=== PATIENT | female | born 1980 | race Caucasian/White ===

== ENCOUNTER → 2017-10-06 | Outpatient (CLI) | payer OTHER ==
--- NOTE | 2017-10-07 10:40 | RAD ---
EXAM DESCRIPTION: Knee,Left Complete CLINICAL HISTORY: 37 years, Female, PAIN IN LEFT KNEE COMPARISON: None TECHNIQUE: Four views of the left knee including standing views FINDINGS: No fracture or dislocation. Bones appear normally mineralized with normal trabecular pattern. Normal with of medial and lateral compartments on frontal view. Mild sclerosis of the medial femoral condyle and medial tibial plateau. Lateral view shows normal position of the patella. Mild posterior patellar spurring. No suprapatellar knee joint effusion. Normal contour of quadriceps and patellar tendons. No abnormal patellar tilt or subluxation on patellar sunrise view. IMPRESSION: Negative for fracture or dislocation. Electronically signed by: Jim Tilley MD 10/07/2017 10:38 AM CDT
--- NOTE | 2017-10-07 10:41 | RAD ---
EXAM DESCRIPTION: Knee,Right Complete CLINICAL HISTORY: 37 years, Female, PAIN IN RIGHT KNEE COMPARISON: None TECHNIQUE: Four views of the right knee including standing views FINDINGS: No fracture or dislocation. Bones appear normally mineralized with normal trabecular pattern. Mild narrowing of medial and compartment on frontal view with sclerosis and eburnation of the medial femoral condyle. There is mild medial joint line spurring with spurring of the tibial spines. Bone island in the proximal tibia in the lateral tibial plateau region. Lateral view shows normal position of the patella. Mild posterior patellar spurring is present. No suprapatellar knee joint effusion. Normal contour of quadriceps and patellar tendons. Mild lateral tilt without subluxation of the patella on patellar sunrise view. Mild posterior lateral patellar spurring with spurring of the anterior medial femoral trochlea. IMPRESSION: Degenerative changes as described. Electronically signed by: Jim Tilley MD 10/07/2017 10:40 AM CDT
--- NOTE | 2017-10-07 10:43 | RAD ---
EXAM DESCRIPTION: Pelvis CLINICAL HISTORY: 37 years Female, PAIN IN LEFT HIP COMPARISON: None. TECHNIQUE: Single x-ray view of the pelvis and hips. FINDINGS: Transitional lumbosacral sacral vertebrae seen with pseudoarticulation of the right transverse process with the upper right sacral ala. Mild degenerative spurring is seen lateral to the pseudoarticulation at the upper margin of the right SI joint. Bones of the pelvic ring appear intact. No hip fracture or dislocation. Mild spurring at the superolateral left femoral head neck junction. Intact proximal femurs. IMPRESSION: Negative for fracture or dislocation. Electronically signed by: Jim Tilley MD 10/07/2017 10:42 AM CDT
== END ==
LOC: RAD 00:47
PROVIDERS: ATTEND Orthopaedic Surgery
DX: M25.562 Pain in left knee (principal); M25.561 Pain in right knee; M25.552 Pain in left hip; M25.551 Pain in right hip; Z01.818 Encounter for other preprocedural examination

== ENCOUNTER → 2018-02-16 | Outpatient (CLI) | payer OTHER | LOC: RESP 08:41 | PROVIDERS: ATTEND Orthopaedic Surgery | DX: Z01.818 Encounter for other preprocedural examination (principal); M25.562 Pain in left knee; M25.561 Pain in right knee; M25.552 Pain in left hip; M25.551 Pain in right hip ==

== ENCOUNTER 2018-04-12 05:43 | Day surgery (SDC) | payer OTHER ==
--- NOTE | 2018-04-06 13:52 | HP ---
CHIEF COMPLAINT: Left knee pain. HISTORY OF PRESENT ILLNESS: Deena is a 38-year-old female with a history of pain in the left knee. She has been scheduled to undergo knee arthroscopy, however, has had difficulty getting medical clearance. She now has medical clearance. Her complaints include locking and popping in addition to her pain. She said she has failed conservative measures. She is now requesting operative intervention. After discussing the risks, benefits and alternatives to that, the patient has given informed consent. PAST SURGICAL HISTORY: She says she has had multiple surgeries, but is unable to remember all of them. MEDICATIONS: Hormone replacement. ALLERGIES: She has multiple allergies and says she can only take a Z-Brendon and morphine, otherwise she feels as though she is allergic. CODE STATUS: Full code. IMMUNIZATIONS: Up to date. FAMILY HISTORY: None pertinent to today's complaint. SOCIAL HISTORY: The patient does not drink or use any illicit drugs. She does smoke. REVIEW OF SYSTEMS: Negative except as indicated in the History of Present Illness. PHYSICAL EXAMINATION: VITAL SIGNS: Blood pressure 122/75. Pulse 84. Height 5'5". Weight 207. MENTAL STATUS: The patient is awake, alert, and is able to give a good history and participate in the physical. The patient is oriented to person, place and time. SKIN: Normal tone and turgor. HEENT: Normocephalic, atraumatic. Pupils equal, round and reactive. Mucosal membranes are moist. NECK: Normal range of motion. No thyromegaly, no lymphadenopathy. CHEST: Normal respiratory excursion. CARDIAC: Regular rate and rhythm. No murmurs, rubs or gallops. MUSCULOSKELETAL: She has tenderness over the medial aspect of the knee and mild effusion today. Sensation is intact throughout the extremity. She does maintain full extension with flexion to about 125 degrees. She has no varus/ valgus or anterior/posterior laxity and she has no malalignment. She has positive Roberto's and probable clicking in the knee. ASSESSMENT: 1. Meniscus tear. PLAN: The plan at this point is for knee arthroscopy. We have discussed the risks, benefits, and alternatives to that and the patient has given informed consent. #[id number] [facility]
[2018-04-12] MEDS ORDERED: DEXAMETHASONE INJ 10 MG/ML VIAL ONE (07:00)
[2018-04-12] MEDS ORDERED: raNITIdine HCL INJ 25 MG/ML VIAL ONE (07:00)
[2018-04-12] MEDS ORDERED: LIDOCAINE 1% 10 ML VIAL INJ ONE (07:00)
[2018-04-12] MEDS ORDERED: PROPOFOL 200 MG/20 ML VIAL IV ONE (07:00)
[2018-04-12] MEDS ORDERED: BUPIVACAINE 0.5% 30 ML VIAL INJ ONE (08:10)
[2018-04-12] MEDS ORDERED: VANCOMYCIN HCL INJ 1,000 MG VIAL IVPB ONE ×2 (08:10→09:41)
[2018-04-12] MEDS ORDERED: BUPIVACAINE LIPOSOME 13.3 MG/ML VIAL INJ ONE (08:22)
[2018-04-12] MEDS ORDERED: SODIUM CHL 0.9% 100ML MINI-BAG 100 ML IVPB ONE (08:36)
[2018-04-12] MEDS ORDERED: LACTATED RINGERS 1,000 ML ONE (08:37)
[2018-04-12] MEDS ORDERED: ceFAZolin SODIUM 1 GM VIAL ONE (08:37)
[2018-04-12] MEDS ORDERED: SODIUM CHLORIDE 0.9% 250ML 250 ML ONE (09:42)
[2018-04-12] MEDS ORDERED: MORPHINE SULFATE INJ 10 MG/ML VIAL ONE (10:07)
[2018-04-12] MEDS ORDERED: MIDAZOLAM INJ 5 MG/5 ML VIAL ONE (10:08)
[2018-04-12] MEDS ORDERED: LACTATED RINGERS 1,000 ML BAG IV ONE (10:20)
[2018-04-12] MEDS: VANCOMYCIN HCL INJ 1,000 MG VIAL IVPB ONE ×3 (10:20→11:17)
[2018-04-12] MEDS ORDERED: ACETAMINOPHEN IV 1000MG 100 ML ONE (10:39)
[2018-04-12 14:33] VITALS: BP 122/84; TEMP 96.8; O2SAT 95
--- NOTE | 2018-04-25 14:30 | OP ---
DATE OF PROCEDURE: 04/12/18 PREOPERATIVE DIAGNOSIS: 1. Chondromalacia. 2. Knee pain. 3. Possible meniscus tear. POSTOPERATIVE DIAGNOSIS: 1. Chondromalacia of the patellofemoral joint. PROCEDURE: 1. Chondroplasty. SURGEON: Tristan White MD. SENIOR MECHANICAL PROJECT ENGINEER: Avery Beckett CST, -C. ANESTHESIA: General anesthesia. COMPLICATIONS: None. FINDINGS: 1. Normal medial compartment. 2. Normal anterior cruciate ligament. 3. Normal posterior cruciate ligament. 4. Normal lateral compartment. 5. Normal lateral gutter. 6. Normal suprapatellar pouch. 7. Full thickness defects involving the patellar chondral surface with chondral softening on the femoral portion of the patellofemoral joint. 8. Normal medial gutter. INDICATION: Deena has a long history of pain in the knee which has been refractory to conservative measures. She has requested operative intervention. After discussing the risks, benefits and alternatives to that, the patient has given informed consent for that. PROCEDURE: The patient was brought to the Operating Room and placed in supine position. General anesthesia was induced and the patient's leg was sterilely prepped and draped. Following prepping and draping, standard anteromedial and anterolateral portals were established. Diagnostic arthroscopy was carried out with the above findings. Once identification of the chondromalacia had been made, a superolateral portal was established and a 3.5 mm full radius shaver was used to debride the patellar chondral surface to a stable base. The surface was thoroughly probed and all debris was removed from the knee. The knee was thoroughly irrigated and drained. Following draining of the knee, the wounds were closed with Nylon suture. Sterile dressings were placed. The patient was awoken from anesthesia and taken to Recovery. POSTOPERATIVE PLAN: The patient will be partial weightbearing and will followup with us in approximately two days. #[id number] [facility]
== END 2018-04-12 13:10 | disposition home or self-care (01) ==
LOC: AMB 05:43
PROVIDERS: ATTEND Orthopaedic Surgery
DX: M22.42 Chondromalacia patellae, left knee (principal); F17.290 Nicotine dependence, other tobacco product, uncomplicated; I45.10 Unspecified right bundle-branch block; Z79.899 Other long term (current) drug therapy
CPT/HCPCS: 01400; 29877; 81001; 87070; J0690; J1100; J2250; J2270; J2780; J3370; J3490; J7050; J7120